=== PATIENT | female | born 1945 | race Caucasian/White ===

== ENCOUNTER 2018-07-22 12:31 | Inpatient (IN) | payer OTHER, BC ==
[2018-07-22] MEDS ORDERED: CEFAZOLIN 1 GM INJ ×3 (15:00→16:42)
[2018-07-22] MEDS ORDERED: BUPIVACAINE 0.5% (SDV) 30 ML INJ (15:00)
[2018-07-22] MEDS ORDERED: NACL 0.9% 3 ML SYG IV (15:30)
[2018-07-22] MEDS ORDERED: HYDROCODONE/APAP (5/325) TAB PO (15:30)
[2018-07-22] MEDS ORDERED: NALOXONE (0.4 MG/ML) INJ IV (15:30)
[2018-07-22] MEDS ORDERED: MIDAZOLAM 1 MG/ML 2 ML INJ (15:37)
[2018-07-22] MEDS ORDERED: ROCURONIUM 50 MG INJ (15:37)
[2018-07-22] MEDS ORDERED: PROPOFOL 20 ML (15:37)
[2018-07-22] MEDS ORDERED: LIDOCAINE 2% (SDV) 5 ML INJ (15:37)
[2018-07-22] MEDS: DOCUSATE SODIUM 100 MG CAP PO (16:00)
[2018-07-22] MEDS ORDERED: ONDANSETRON 4 MG INJ (16:28)
[2018-07-22] MEDS ORDERED: DEXAMETHASONE 4 MG/ML 5 ML INJ (16:28)
[2018-07-22] MEDS ORDERED: LABETALOL HCL 20MG INJ (16:55)
[2018-07-22] MEDS: HEPARIN 1000 UNITS/ML 10 ML INJ (17:09)
[2018-07-22] MEDS: CEFAZOLIN 1 GM INJ (17:09)
[2018-07-22] MEDS: GELATIN SIZE 100 SPONGE (17:12)
[2018-07-22] MEDS: THROMBIN 5000 UNIT VIAL (17:12)
[2018-07-22] MEDS ORDERED: THROMBIN 5000 UNIT VIAL (17:20)
[2018-07-22] MEDS: HEMOSTATIC MATRIX SYG ZFS (17:42)
[2018-07-22] MEDS: THROMBIN (BOVINE) 5,000 UNIT VIAL TP (17:43)
[2018-07-22] MEDS ORDERED: SUGAMMADEX SODIUM 200 MG/2 ML VIAL IV (18:49)
[2018-07-22] MEDS: HYDROmorphONE 0.2 MG/ML PCA IV (19:27)
[2018-07-22] MEDS ORDERED: LABETALOL HCL 20MG INJ IV (19:30)
[2018-07-22] MEDS ORDERED: HYDROmorphONE 1 MG/5 ML IV SYRINGE IV ×3 (19:30)
[2018-07-22] MEDS ORDERED: HYDROmorphONE 2 MG/ML SYG (19:41)
[2018-07-22] MEDS: HYDROmorphONE 2 MG/ML SYG IV (21:15)
[2018-07-22] MEDS: ONDANSETRON 4 MG INJ IV (21:23)
[2018-07-23] MEDS: DOCUSATE SODIUM 100 MG CAP PO ×3 (01:00→20:34)
[2018-07-23] MEDS: CEFAZOLIN 2 GM/50 ML (PMX) 50 ML IVPB ×4 (01:36→22:44)
[2018-07-23] MEDS: NS + KCL 20 MEQ 1,000 ML IV ×3 (01:37→13:40)
[2018-07-23 05:23] LABS: HEMATOCRIT 35.8 % (37.0-47.0); HEMOGLOBIN 12.1 g/dl (12.0-16.0)
[2018-07-23 06:01] LABS: ANION GAP 11 (5-13); BLOOD UREA NITROGEN 16 mg/dl (7-20); CALCIUM 8.4 mg/dl (8.4-10.2); CARBON DIOXIDE 24 mmol/L (21-31); CHLORIDE 108 mmol/L (97-110); CREATININE 0.61 mg/dl (0.44-1.00); GLUCOSE 210 mg/dl (70-220); POTASSIUM 4.4 mmol/L (3.5-5.1); SODIUM 143 mmol/L (135-144)
[2018-07-23] MEDS ORDERED: DIPHENHYDRAMINE 50 MG INJ (08:00)
[2018-07-23] MEDS ORDERED: ONDANSETRON 4 MG INJ (08:00)
[2018-07-23] MEDS: ONDANSETRON 4 MG INJ IV (08:07)
[2018-07-23] MEDS: DIPHENHYDRAMINE 50 MG INJ IV (08:08)
[2018-07-23] MEDS: AL HYDROX/MG HYDROX/SIMETH 30 ML CUP PO (22:54)
[2018-07-24] MEDS: NS + KCL 20 MEQ 1,000 ML IV ×3 (01:08→14:11)
[2018-07-24] MEDS: PANTOPRAZOLE (EC) 40 MG TAB PO (05:11)
[2018-07-24] MEDS: CEFAZOLIN 2 GM/50 ML (PMX) 50 ML IVPB ×3 (05:14→21:39)
[2018-07-24 06:23] LABS: CHOLESTEROL 125 mg/dl (100-200)
[2018-07-24 06:23] LABS: CHOL/HDL RATIO 2.5 RATIO; HDL CHOLESTEROL 50 mg/dl (33-92); LDL CHOLESTEROL,CALCULATED 62 mg/dl; TRIGLYCERIDES 64 mg/dl (0-149)
[2018-07-24] MEDS: DOCUSATE SODIUM 100 MG CAP PO ×2 (08:25→21:39)
[2018-07-24 08:38] LABS: ADD MAN DIFF? NO
[2018-07-24 08:44] LABS: WHITE BLOOD COUNT 12.8 10^3/ul (4.8-10.8)
[2018-07-24 08:44] LABS: BASOPHILS % 0.2 % (0.0-2.0); HEMATOCRIT 29.8 % (37.0-47.0); HEMOGLOBIN 9.8 g/dl (12.0-16.0); LYMPHOCYTES # 0.9 10^3/ul (0.8-2.9); MEAN CORPUSCULAR HEMOGLOBIN 30.2 pg (29.0-33.0); MEAN CORPUSCULAR HGB CONC 32.9 g/dl (32.0-37.0); MEAN PLATELET VOLUME 9.6 fl (7.4-10.4); MONOCYTES % 7.4 % (0.0-11.0); NEUTROPHIL # 10.8 10^3/ul (1.6-7.5); NEUTROPHILS % 84.6 % (39.0-77.0); PLATELET COUNT 168 10^3/UL (140-415); RED BLOOD COUNT 3.24 10^6/ul (4.20-5.40); RED CELL DISTRIBUTION WIDTH 12.4 % (11.5-14.5)
[2018-07-24 09:28] LABS: ANION GAP 9 (5-13); BLOOD UREA NITROGEN 13 mg/dl (7-20); CALCIUM 8.5 mg/dl (8.4-10.2); CARBON DIOXIDE 24 mmol/L (21-31); CHLORIDE 105 mmol/L (97-110); CREATININE 0.57 mg/dl (0.44-1.00); GLUCOSE 92 mg/dl (70-220); POTASSIUM 4.2 mmol/L (3.5-5.1); SODIUM 138 mmol/L (135-144)
[2018-07-24] MEDS ORDERED: SURGIFOAM POWDER 1 GM KIT (10:30)
[2018-07-24] MEDS ORDERED: ROPIVACAINE 0.5 % 30 ML VIAL (10:30)
[2018-07-24] MEDS ORDERED: MIDAZOLAM 1 MG/ML 2 ML INJ (11:24)
[2018-07-24] MEDS ORDERED: PROPOFOL 20 ML (11:41)
[2018-07-24] MEDS ORDERED: SUCCINYLCHOLINE CHLORIDE 100 MG/5 ML SYG IV (11:41)
[2018-07-24] MEDS ORDERED: ROCURONIUM 50 MG INJ ×2 (11:41→11:55)
[2018-07-24] MEDS ORDERED: PHENYLephrine (100 MCG/ML) 10ML SYG (11:41)
[2018-07-24] MEDS ORDERED: CEFAZOLIN 1 GM INJ (11:43)
[2018-07-24] MEDS ORDERED: FAMOTIDINE 20 MG INJ (11:53)
[2018-07-24] MEDS ORDERED: METOCLOPRAMIDE 10 MG INJ (11:53)
[2018-07-24] MEDS ORDERED: ONDANSETRON 4 MG INJ (11:53)
[2018-07-24] MEDS ORDERED: DEXAMETHASONE 4 MG/ML 5 ML INJ (11:53)
[2018-07-24] MEDS ORDERED: MEPERIDINE 25 MG INJ IV (12:00)
[2018-07-24] MEDS: POLYMYXIN/BACITRACIN 1L IRRIG (12:00)
[2018-07-24] MEDS: THROMBIN 5000 UNIT VIAL (12:00)
[2018-07-24] MEDS ORDERED: HYDROmorphONE 0.5 MG/0.5 ML SYG IV ×3 (12:00)
[2018-07-24] MEDS: ROPIVACAINE 0.5 % 30 ML VIAL ×2 (12:00)
[2018-07-24] MEDS ORDERED: EPHEDrine SULFATE 50 MG/5 ML SYG IV (12:00)
[2018-07-24] MEDS: GELATIN SIZE 100 SPONGE (12:00)
[2018-07-24] MEDS ORDERED: FENTAnyl 50 MCG/ML VIAL IV (12:00)
[2018-07-24] MEDS ORDERED: DIPHENHYDRAMINE 50 MG INJ IV (12:00)
[2018-07-24] MEDS ORDERED: hydrALAzine 20 MG INJ IV (12:00)
[2018-07-24] MEDS ORDERED: LABETALOL HCL 20MG INJ IV (12:00)
[2018-07-24] MEDS ORDERED: SUGAMMADEX SODIUM 200 MG/2 ML VIAL IV (13:16)
[2018-07-24] MEDS ORDERED: LABETALOL HCL 20MG INJ (13:35)
[2018-07-24] MEDS: ONDANSETRON 4 MG INJ IV (13:50)
[2018-07-24] MEDS: FENTAnyl 50 MCG/ML VIAL IV ×2 (13:59→14:26)
[2018-07-24] MEDS: HYDROmorphONE 0.2 MG/ML PCA IV (14:39)
[2018-07-24] MEDS: ALTEPLASE (CATHFLO) 2 MG INJ CATHETER (18:33)
[2018-07-25] MEDS: NS + KCL 20 MEQ 1,000 ML IV ×2 (02:18→13:31)
[2018-07-25 05:39] LABS: ADD MAN DIFF? NO
[2018-07-25] MEDS: CEFAZOLIN 2 GM/50 ML (PMX) 50 ML IVPB ×3 (05:42→22:06)
[2018-07-25] MEDS: PANTOPRAZOLE (EC) 40 MG TAB PO (05:42)
[2018-07-25 05:46] LABS: BASOPHILS % 0.2 % (0.0-2.0); HEMATOCRIT 27.2 % (37.0-47.0); LYMPHOCYTES # 1.2 10^3/ul (0.8-2.9); LYMPHOCYTES % 8.9 % (15.0-51.0); MEAN CORPUSCULAR HEMOGLOBIN 30.2 pg (29.0-33.0); MEAN CORPUSCULAR HGB CONC 33.1 g/dl (32.0-37.0); MEAN CORPUSCULAR VOLUME 91.3 fl (82.0-101.0); MONOCYTE # 1.2 10^3/ul (0.3-0.9); MONOCYTES % 9.2 % (0.0-11.0); NEUTROPHIL # 10.7 10^3/ul (1.6-7.5); NEUTROPHILS % 81.2 % (39.0-77.0); PLATELET COUNT 182 10^3/UL (140-415); RED BLOOD COUNT 2.98 10^6/ul (4.20-5.40); RED CELL DISTRIBUTION WIDTH 12.5 % (11.5-14.5)
[2018-07-25 05:46] LABS: WHITE BLOOD COUNT 13.2 10^3/ul (4.8-10.8)
[2018-07-25 06:02] LABS: ANION GAP 8 (5-13); BLOOD UREA NITROGEN 10 mg/dl (7-20); CALCIUM 8.5 mg/dl (8.4-10.2); CARBON DIOXIDE 27 mmol/L (21-31); CHLORIDE 103 mmol/L (97-110); GLUCOSE 96 mg/dl (70-220); POTASSIUM 4.1 mmol/L (3.5-5.1); SODIUM 138 mmol/L (135-144)
[2018-07-25] MEDS: DOCUSATE SODIUM 100 MG CAP PO ×2 (08:41→20:50)
[2018-07-25] MEDS ORDERED: ACETAMINOPHEN 325 MG TAB PO (11:00)
[2018-07-25] MEDS: HYDROmorphONE 0.5 MG/0.5 ML SYG IV (18:33)
[2018-07-25] MEDS: HYDROCODONE/APAP (5/325) TAB PO (20:50)
[2018-07-26] MEDS: HYDROmorphONE 0.5 MG/0.5 ML SYG IV ×2 (00:37→23:03)
[2018-07-26] MEDS: NS + KCL 20 MEQ 1,000 ML IV ×3 (00:54→20:55)
[2018-07-26] MEDS: HYDROCODONE/APAP (5/325) TAB PO ×2 (03:32→11:13)
[2018-07-26] MEDS: PANTOPRAZOLE (EC) 40 MG TAB PO (06:21)
[2018-07-26] MEDS: CEFAZOLIN 2 GM/50 ML (PMX) 50 ML IVPB ×3 (06:21→21:24)
[2018-07-26] MEDS: DOCUSATE SODIUM 100 MG CAP PO ×2 (08:20→20:56)
[2018-07-26 08:59] LABS: ADD MAN DIFF? NO
[2018-07-26 09:06] LABS: WHITE BLOOD COUNT 12.3 10^3/ul (4.8-10.8)
[2018-07-26 09:06] LABS: BASOPHILS % 0.2 % (0.0-2.0); EOSINOPHILS # 0.1 10^3/ul (0.0-0.5); EOSINOPHILS % 0.7 % (0.0-7.0); HEMATOCRIT 29.3 % (37.0-47.0); HEMOGLOBIN 9.7 g/dl (12.0-16.0); LYMPHOCYTES # 1.3 10^3/ul (0.8-2.9); LYMPHOCYTES % 10.9 % (15.0-51.0); MEAN CORPUSCULAR HEMOGLOBIN 30.1 pg (29.0-33.0); MEAN CORPUSCULAR HGB CONC 33.1 g/dl (32.0-37.0); MEAN PLATELET VOLUME 10.4 fl (7.4-10.4); MONOCYTE # 1.1 10^3/ul (0.3-0.9); MONOCYTES % 8.8 % (0.0-11.0); NEUTROPHIL # 9.6 10^3/ul (1.6-7.5); NEUTROPHILS % 78.7 % (39.0-77.0); PLATELET COUNT 188 10^3/UL (140-415); RED BLOOD COUNT 3.22 10^6/ul (4.20-5.40); RED CELL DISTRIBUTION WIDTH 12.4 % (11.5-14.5)
[2018-07-26 09:25] LABS: ANION GAP 10 (5-13); BLOOD UREA NITROGEN 9 mg/dl (7-20); CALCIUM 8.7 mg/dl (8.4-10.2); CARBON DIOXIDE 26 mmol/L (21-31); CHLORIDE 103 mmol/L (97-110); CREATININE 0.46 mg/dl (0.44-1.00); GLUCOSE 96 mg/dl (70-220); POTASSIUM 3.6 mmol/L (3.5-5.1); SODIUM 139 mmol/L (135-144)
[2018-07-26] MEDS: POTASSIUM CHLORIDE (SR) 20 MEQ TAB PO (13:00)
[2018-07-26] MEDS: MAGNESIUM SULFATE 2 GM/50 ML 50 ML IVPB (13:01)
[2018-07-26] MEDS: METOPROLOL 25 MG TAB PO ×2 (13:01→20:56)
[2018-07-27] MEDS: HYDROCODONE/APAP (5/325) TAB PO ×2 (02:51→15:08)
[2018-07-27] MEDS: HYDROmorphONE 0.5 MG/0.5 ML SYG IV ×3 (03:02→16:05)
[2018-07-27 06:11] LABS: ADD MAN DIFF? NO
[2018-07-27 06:13] LABS: BASOPHILS % 0.1 % (0.0-2.0); EOSINOPHILS # 0.2 10^3/ul (0.0-0.5); EOSINOPHILS % 2.2 % (0.0-7.0); HEMOGLOBIN 8.6 g/dl (12.0-16.0); LYMPHOCYTES # 1.1 10^3/ul (0.8-2.9); LYMPHOCYTES % 12.5 % (15.0-51.0); MEAN CORPUSCULAR HEMOGLOBIN 29.8 pg (29.0-33.0); MEAN CORPUSCULAR HGB CONC 33.1 g/dl (32.0-37.0); MEAN PLATELET VOLUME 9.6 fl (7.4-10.4); MONOCYTE # 0.9 10^3/ul (0.3-0.9); MONOCYTES % 10.3 % (0.0-11.0); NEUTROPHIL # 6.8 10^3/ul (1.6-7.5); NEUTROPHILS % 74.5 % (39.0-77.0); PLATELET COUNT 183 10^3/UL (140-415); RED BLOOD COUNT 2.89 10^6/ul (4.20-5.40); RED CELL DISTRIBUTION WIDTH 12.3 % (11.5-14.5)
[2018-07-27 06:13] LABS: WHITE BLOOD COUNT 9.2 10^3/ul (4.8-10.8)
[2018-07-27] MEDS: PANTOPRAZOLE (EC) 40 MG TAB PO (06:20)
[2018-07-27 06:29] LABS: MAGNESIUM 2.2 mg/dl (1.7-2.5)
[2018-07-27 06:58] LABS: ANION GAP 4 (5-13); BLOOD UREA NITROGEN 10 mg/dl (7-20); CALCIUM 8.4 mg/dl (8.4-10.2); CARBON DIOXIDE 26 mmol/L (21-31); CHLORIDE 108 mmol/L (97-110); CREATININE 0.42 mg/dl (0.44-1.00); GLUCOSE 98 mg/dl (70-220); POTASSIUM 3.8 mmol/L (3.5-5.1); SODIUM 138 mmol/L (135-144)
[2018-07-27] MEDS: CEFAZOLIN 2 GM/50 ML (PMX) 50 ML IVPB (08:59)
[2018-07-27] MEDS: NS + KCL 20 MEQ 1,000 ML IV ×2 (08:59→17:00)
[2018-07-27] MEDS: DOCUSATE SODIUM 100 MG CAP PO ×2 (08:59→19:43)
[2018-07-27] MEDS: METOPROLOL 25 MG TAB PO ×2 (08:59→19:44)
[2018-07-27] MEDS: SENNA TAB PO ×2 (10:08→19:43)
[2018-07-27] MEDS: POLYETHYLENE GLYCOL 17 GM PACKET PO (16:05)
[2018-07-27] MEDS: HYDROmorphONE 1 MG/ML SYG IV (19:44)
[2018-07-28] MEDS: HYDROCODONE/APAP (5/325) TAB PO ×2 (02:36→06:14)
[2018-07-28] MEDS: NS + KCL 20 MEQ 1,000 ML IV ×5 (03:00→23:26)
[2018-07-28 06:08] LABS: ADD MAN DIFF? NO
[2018-07-28] MEDS: POLYETHYLENE GLYCOL 17 GM PACKET PO (06:13)
[2018-07-28] MEDS: PANTOPRAZOLE (EC) 40 MG TAB PO (06:13)
[2018-07-28] MEDS: SENNA TAB PO ×2 (06:13→20:26)
[2018-07-28 06:21] LABS: WHITE BLOOD COUNT 7.9 10^3/ul (4.8-10.8)
[2018-07-28 06:21] LABS: BASOPHILS % 0.3 % (0.0-2.0); EOSINOPHILS # 0.3 10^3/ul (0.0-0.5); EOSINOPHILS % 3.6 % (0.0-7.0); HEMATOCRIT 29.3 % (37.0-47.0); HEMOGLOBIN 9.7 g/dl (12.0-16.0); MEAN CORPUSCULAR HEMOGLOBIN 29.8 pg (29.0-33.0); MEAN CORPUSCULAR HGB CONC 33.1 g/dl (32.0-37.0); MEAN CORPUSCULAR VOLUME 89.9 fl (82.0-101.0); MEAN PLATELET VOLUME 9.6 fl (7.4-10.4); MONOCYTE # 0.9 10^3/ul (0.3-0.9); MONOCYTES % 10.9 % (0.0-11.0); NEUTROPHIL # 5.6 10^3/ul (1.6-7.5); NEUTROPHILS % 71.1 % (39.0-77.0); PLATELET COUNT 189 10^3/UL (140-415); RED BLOOD COUNT 3.26 10^6/ul (4.20-5.40)
[2018-07-28] MEDS: DOCUSATE SODIUM 100 MG CAP PO ×2 (09:10→20:26)
[2018-07-28] MEDS: METOPROLOL 25 MG TAB PO ×2 (09:10→20:26)
[2018-07-28] MEDS: HYDROmorphONE 1 MG/ML SYG IV ×3 (09:37→18:50)
[2018-07-28] MEDS: BISACODYL 10 MG SUPP PR (17:24)
[2018-07-28] MEDS: ATORVASTATIN 10 MG TAB PO (20:26)
[2018-07-28] MEDS: AL HYDROX/MG HYDROX/SIMETH 30 ML CUP PO (20:27)
[2018-07-29] MEDS: HYDROCODONE/APAP (5/325) TAB PO ×3 (01:31→19:58)
[2018-07-29] MEDS: PANTOPRAZOLE (EC) 40 MG TAB PO (05:32)
[2018-07-29 06:08] LABS: ADD MAN DIFF? NO
[2018-07-29 06:18] LABS: WHITE BLOOD COUNT 6.8 10^3/ul (4.8-10.8)
[2018-07-29 06:18] LABS: BASOPHILS % 0.3 % (0.0-2.0); EOSINOPHILS # 0.3 10^3/ul (0.0-0.5); EOSINOPHILS % 4.8 % (0.0-7.0); HEMATOCRIT 27.3 % (37.0-47.0); HEMOGLOBIN 9.1 g/dl (12.0-16.0); LYMPHOCYTES # 1.2 10^3/ul (0.8-2.9); LYMPHOCYTES % 17.3 % (15.0-51.0); MEAN CORPUSCULAR HEMOGLOBIN 29.9 pg (29.0-33.0); MEAN CORPUSCULAR HGB CONC 33.3 g/dl (32.0-37.0); MEAN CORPUSCULAR VOLUME 89.8 fl (82.0-101.0); MEAN PLATELET VOLUME 9.7 fl (7.4-10.4); MONOCYTE # 0.7 10^3/ul (0.3-0.9); NEUTROPHIL # 4.5 10^3/ul (1.6-7.5); NEUTROPHILS % 66.4 % (39.0-77.0); PLATELET COUNT 191 10^3/UL (140-415); RED BLOOD COUNT 3.04 10^6/ul (4.20-5.40); RED CELL DISTRIBUTION WIDTH 12.2 % (11.5-14.5)
[2018-07-29] MEDS: SENNA TAB PO ×3 (09:00→21:00)
[2018-07-29] MEDS: METOPROLOL 25 MG TAB PO ×3 (09:25→19:57)
[2018-07-29] MEDS: DOCUSATE SODIUM 100 MG CAP PO ×2 (09:25→21:00)
[2018-07-29] MEDS: HYDROmorphONE 1 MG/ML SYG IV (15:07)
[2018-07-29] MEDS: ATORVASTATIN 10 MG TAB PO (19:57)
[2018-07-29] MEDS: ZOLPIDEM 5 MG TAB PO (23:14)
[2018-07-30] MEDS: HYDROCODONE/APAP (5/325) TAB PO ×4 (02:37→21:23)
[2018-07-30] MEDS: PANTOPRAZOLE (EC) 40 MG TAB PO (05:57)
[2018-07-30 06:52] LABS: ADD MAN DIFF? NO
[2018-07-30 06:58] LABS: BASOPHILS % 0.3 % (0.0-2.0); EOSINOPHILS # 0.4 10^3/ul (0.0-0.5); EOSINOPHILS % 5.2 % (0.0-7.0); HEMATOCRIT 28.8 % (37.0-47.0); HEMOGLOBIN 9.5 g/dl (12.0-16.0); LYMPHOCYTES # 1.3 10^3/ul (0.8-2.9); LYMPHOCYTES % 18.5 % (15.0-51.0); MEAN CORPUSCULAR VOLUME 90.9 fl (82.0-101.0); MEAN PLATELET VOLUME 9.5 fl (7.4-10.4); MONOCYTE # 0.6 10^3/ul (0.3-0.9); MONOCYTES % 8.5 % (0.0-11.0); NEUTROPHIL # 4.6 10^3/ul (1.6-7.5); NEUTROPHILS % 65.9 % (39.0-77.0); PLATELET COUNT 231 10^3/UL (140-415); RED BLOOD COUNT 3.17 10^6/ul (4.20-5.40); RED CELL DISTRIBUTION WIDTH 12.2 % (11.5-14.5)
[2018-07-30 06:58] LABS: WHITE BLOOD COUNT 6.9 10^3/ul (4.8-10.8)
[2018-07-30 07:27] LABS: ANION GAP 9 (5-13); BLOOD UREA NITROGEN 11 mg/dl (7-20); CALCIUM 9.3 mg/dl (8.4-10.2); CARBON DIOXIDE 28 mmol/L (21-31); CHLORIDE 101 mmol/L (97-110); CREATININE 0.52 mg/dl (0.44-1.00); GLUCOSE 117 mg/dl (70-220); MAGNESIUM 1.9 mg/dl (1.7-2.5); POTASSIUM 4.2 mmol/L (3.5-5.1); SODIUM 138 mmol/L (135-144)
[2018-07-30] MEDS: METOPROLOL 25 MG TAB PO ×2 (08:07→20:16)
[2018-07-30] MEDS: SENNA TAB PO ×2 (08:07→20:15)
[2018-07-30] MEDS: DOCUSATE SODIUM 100 MG CAP PO ×2 (08:07→20:15)
[2018-07-30] MEDS: ATORVASTATIN 10 MG TAB PO (20:16)
[2018-07-30] MEDS: ZOLPIDEM 5 MG TAB PO (23:00)
[2018-07-31] MEDS: HYDROCODONE/APAP (5/325) TAB PO ×2 (01:43→23:32)
[2018-07-31] MEDS: HYDROmorphONE 1 MG/ML SYG IV ×4 (01:49→21:50)
[2018-07-31] MEDS: PANTOPRAZOLE (EC) 40 MG TAB PO (05:59)
[2018-07-31] MEDS: SENNA TAB PO ×2 (08:07→21:53)
[2018-07-31] MEDS: DOCUSATE SODIUM 100 MG CAP PO ×2 (08:08→21:52)
[2018-07-31] MEDS: METOPROLOL 25 MG TAB PO ×2 (08:09→21:54)
[2018-07-31] MEDS: ATORVASTATIN 10 MG TAB PO (21:53)
[2018-08-01] MEDS: PANTOPRAZOLE (EC) 40 MG TAB PO (05:48)
[2018-08-01] MEDS: HYDROCODONE/APAP (5/325) TAB PO ×3 (08:12→17:01)
[2018-08-01] MEDS: METOPROLOL 25 MG TAB PO (08:48)
[2018-08-01] MEDS: SENNA TAB PO (08:48)
[2018-08-01] MEDS: DOCUSATE SODIUM 100 MG CAP PO (08:48)
== END 2018-08-01 19:40 | DRG 454 ==
LOC: REC 12:31 → ICU 19:17 → MS1 07-31 20:05 → TEL 07-25 17:09
PROC: 0SG10A0 Fusion of 2 or more Lumbar Vertebral Joints with Interbody Fusion Device, Anterior Approach, Anterior Column, Open Approach (ICD-10-PCS; principal; 2018-07-22 15:00)
PROC: 0SB20ZZ Excision of Lumbar Vertebral Disc, Open Approach (ICD-10-PCS; 2018-07-22 15:00)
PROC: 0SG1071 Fusion of 2 or more Lumbar Vertebral Joints with Autologous Tissue Substitute, Posterior Approach, Posterior Column, Open Approach (ICD-10-PCS; 2018-07-22 15:51)
PROC: 0SG3071 Fusion of Lumbosacral Joint with Autologous Tissue Substitute, Posterior Approach, Posterior Column, Open Approach (ICD-10-PCS; 2018-07-22 15:51)
PROC: 0SB40ZZ Excision of Lumbosacral Disc, Open Approach (ICD-10-PCS; 2018-07-22 15:51)
PROC: 0SB Lower Joints, Excision (ICD-10-PCS; 2018-07-22 15:51)
PROC: 0SB30ZZ Excision of Lumbosacral Joint, Open Approach (ICD-10-PCS; 2018-07-22 15:51)
DX: M47.26 Other spondylosis with radiculopathy, lumbar region (principal); I47.1 Supraventricular tachycardia; M51.17 Intervertebral disc disorders with radiculopathy, lumbosacral region; M81.0 Age-related osteoporosis without current pathological fracture; K21.9 Gastro-esophageal reflux disease without esophagitis; E78.5 Hyperlipidemia, unspecified; M71.38 Other bursal cyst, other site; E88.2 Lipomatosis, not elsewhere classified; M48.061 Spinal stenosis, lumbar region without neurogenic claudication; D64.9 Anemia, unspecified
CPT/HCPCS: 72100; 72131; 72170; 80048; 80061; 83735; 85014; 85018; 85025; 86850; 86900; 86901; 86920; 87081; 88304; 88311; 93005; 93306; 97116; 97162; 97165; 97530; 97535

== ENCOUNTER 2018-08-02 00:20 | Emergency (ER) | payer OTHER ==
[2018-08-02] MEDS: OXYCODONE/ACETAMINOPHEN (10/325) TAB PO (02:10)
[2018-08-02] MEDS: ONDANSETRON (ODT) 4 MG TAB ODT (02:10)
== END 2018-08-02 03:52 | disposition home or self-care (01) ==
LOC: E/R 00:20
DX: G89.18 Other acute postprocedural pain (principal); Z79.82 Long term (current) use of aspirin
CPT/HCPCS: 99283